=== PATIENT | female | born 1960 | race Two or more races ===

== ENCOUNTER 2022-06-09 11:00 | Inpatient (IN) | payer BC ==
[~2022-06-09] VITALS: Ht 165.1 cm; Wt 65.8 kg
[2022-06-11] MEDS ORDERED: CRESTOR10 MG PO (13:44)
[2022-06-11] MEDS ORDERED: TIROSINT75 MCG PO (13:44)
[2022-06-11] MEDS ORDERED: TOPIRAMATE100 MG PO (13:45)
[2022-06-11] MEDS ORDERED: SAVELLA50 MG PO ×2 (13:46→13:48)
[2022-06-11] MEDS ORDERED: DEXI PO (13:50)
[2022-06-11] MEDS ORDERED: INDERAL XL80 MG PO (13:50)
[2022-06-18] MEDS ORDERED: LEVSIN/SL0.125 MG SL (13:23)
== END 2022-06-18 15:13 | disposition home or self-care (01) | DRG 330 ==
LOC: O/R 06-15 06:30 → SURH 06-15 10:15 → SURG 06-16 13:18
PROVIDERS: ADMIT Surgery; ATTEND Surgery
PROC: 07BC4ZX Excision of Pelvis Lymphatic, Percutaneous Endoscopic Approach, Diagnostic (ICD-10-PCS; 2022-06-15)
PROC: 0DBU4ZZ Excision of Omentum, Percutaneous Endoscopic Approach (ICD-10-PCS; 2022-06-15)
PROC: 0DTF4ZZ Resection of Right Large Intestine, Percutaneous Endoscopic Approach (ICD-10-PCS; principal; 2022-06-15 15:00)
DX: D12.2 Benign neoplasm of ascending colon (principal); K92.1 Melena; D37.4 Neoplasm of uncertain behavior of colon; R59.0 Localized enlarged lymph nodes